=== PATIENT | male | born 1955 | race Caucasian/White ===

== ENCOUNTER 2017-12-02 11:32 | Observation (INO) | payer BC ==
[~2017-12-02 11:32] MED LIST: CEFAZOLIN 2 GM/50 ML (PMX) 50 ML IVPB; DESFLURANE 15 MIN; LIDOCAINE 2% (SDV) 5 ML INJ; SOD CHLORIDE 0.9% 1,000 ML IV
[2017-12-02] MEDS: BUPIVACAINE 0.25% (MPF) 30 ML INJ (13:46)
[2017-12-02] MEDS ORDERED: CEFAZOLIN 2 GM/50 ML (PMX) 50 ML IVPB ×2 (14:00→16:00)
[2017-12-02] MEDS ORDERED: SOD CHLORIDE 0.9% 1,000 ML IV (14:00)
[2017-12-02] MEDS ORDERED: PROPOFOL 20 ML (14:10)
[2017-12-02] MEDS ORDERED: ROCURONIUM 50 MG INJ (14:10)
[2017-12-02] MEDS ORDERED: GLYCOPYRROLATE 0.4 MG INJ (14:10)
[2017-12-02] MEDS ORDERED: CEFAZOLIN 1 GM INJ (14:10)
[2017-12-02] MEDS ORDERED: NEOSTIGMINE 3 MG/3 ML SYRINGE (14:10)
[2017-12-02] MEDS ORDERED: ONDANSETRON 4 MG INJ (14:12)
[2017-12-02] MEDS ORDERED: MIDAZOLAM 1 MG/ML 2 ML INJ (14:12)
[2017-12-02] MEDS ORDERED: FENTAnyl 50 MCG/ML VIAL (14:12)
[2017-12-02] MEDS ORDERED: DEXAMETHASONE 4 MG/ML 1 ML INJ (14:12)
[2017-12-02] MEDS ORDERED: LABETALOL HCL 20MG INJ (14:27)
[2017-12-02] MEDS ORDERED: TRIMETHOBENZAMIDE 100 MG/ML VIAL IM (14:30)
[2017-12-02] MEDS ORDERED: IPRATROPIUM (NEB) 0.5 MG/2.5 ML AMP HHN (14:30)
[2017-12-02] MEDS ORDERED: OXYCODONE/ACETAMINOPHEN (5/325) TAB PO ×2 (14:30)
[2017-12-02] MEDS ORDERED: MEPERIDINE 25 MG INJ IV (14:30)
[2017-12-02] MEDS ORDERED: LABETALOL HCL 20MG INJ IV (14:30)
[2017-12-02] MEDS ORDERED: DIPHENHYDRAMINE 50 MG INJ IV (14:30)
[2017-12-02] MEDS ORDERED: ALBUTEROL 0.083% (NEB) 2.5 MG/3 ML AMP HHN (14:30)
[2017-12-02] MEDS ORDERED: HYDROmorphONE 1 MG/5 ML IV SYRINGE IV ×3 (14:30)
[2017-12-02] MEDS ORDERED: ONDANSETRON 4 MG INJ IV (14:30)
[2017-12-02] MEDS ORDERED: MIDAZOLAM 1 MG/ML 2 ML INJ IV (14:30)
[2017-12-02] MEDS ORDERED: EPHEDrine SULFATE 50 MG/5 ML SYG IV (14:30)
[2017-12-02] MEDS ORDERED: FENTAnyl 50 MCG/ML VIAL IV ×3 (14:30)
[2017-12-02] MEDS ORDERED: hydrALAzine 20 MG INJ IV (14:30)
[2017-12-02] MEDS ORDERED: SUGAMMADEX SODIUM 200 MG/2 ML VIAL IV (15:48)
[2017-12-02] MEDS ORDERED: morphine 2 MG INJ IV (16:00)
[2017-12-02 16:35] LABS: ADD MAN DIFF? NO
[2017-12-02 16:36] LABS: BASOPHIL # 0.1 10^3/ul (0.0-0.1); BASOPHILS % 0.6 % (0.0-2.0); EOSINOPHILS # 0.2 10^3/ul (0.0-0.5); EOSINOPHILS % 1.4 % (0.0-7.0); HEMATOCRIT 40.4 % (42.0-52.0); HEMOGLOBIN 13.4 g/dl (14.0-18.0); LYMPHOCYTES # 2.1 10^3/ul (0.8-2.9); MEAN CORPUSCULAR HEMOGLOBIN 28.3 pg (29.0-33.0); MEAN CORPUSCULAR HGB CONC 33.2 g/dl (32.0-37.0); MEAN CORPUSCULAR VOLUME 85.4 fl (82.0-101.0); MEAN PLATELET VOLUME 10.9 fl (7.4-10.4); MONOCYTE # 0.3 10^3/ul (0.3-0.9); MONOCYTES % 2.2 % (0.0-11.0); NEUTROPHIL # 10.3 10^3/ul (1.6-7.5); NEUTROPHILS % 79.5 % (39.0-77.0); PLATELET COUNT 287 10^3/UL (140-415); RED BLOOD COUNT 4.73 10^6/ul (4.70-6.10); RED CELL DISTRIBUTION WIDTH 13.7 % (11.5-14.5)
[2017-12-02 16:40] LABS: HOLD TRANSMISSIONS 1
[2017-12-02 16:59] LABS: ALANINE AMINOTRANSFERASE 44 IU/L (13-69); ALBUMIN 3.7 g/dl (3.3-4.9); ALBUMIN/GLOBULIN RATIO 1.27; ALKALINE PHOSPHATASE 79 IU/L (42-121); ANION GAP 12 (8-16); ASPARTATE AMINO TRANSFERASE 25 IU/L (15-46); BILIRUBIN,INDIRECT 0.3 mg/dl (0-1.1); BILIRUBIN,TOTAL 0.3 mg/dl (0.2-1.3); BLOOD UREA NITROGEN 15 mg/dl (7-20); CALCIUM 8.9 mg/dl (8.4-10.2); CARBON DIOXIDE 19 mmol/L (21-31); CHLORIDE 115 mmol/L (97-110); CREATININE 1.15 mg/dl (0.61-1.24); GLUCOSE 198 mg/dl (70-220); POTASSIUM 4.6 mmol/L (3.5-5.1); SODIUM 141 mmol/L (135-144); TOTAL PROTEIN 6.6 g/dl (6.1-8.1)
[2017-12-02] MEDS ORDERED: GLUCAGON 1 MG INJ IM (18:30)
[2017-12-02] MEDS ORDERED: GLUCOSE GEL 15 GRAM TUBE BUCCAL (18:30)
[2017-12-02] MEDS ORDERED: DEXTROSE 50% 50 ML SYRINGE IV ×2 (18:30)
[2017-12-02] MEDS ORDERED: GLUCOSE GEL 15 GRAM TUBE PO ×2 (18:30)
[2017-12-02] MEDS: CEFAZOLIN 2 GM/50 ML (PMX) 50 ML IVPB (20:54)
[2017-12-02] MEDS: HYDROCODONE/APAP (5/325) TAB PO (20:54)
[2017-12-02] MEDS: AMLODIPINE 5 MG TAB PO (20:57)
[2017-12-02] MEDS: LISINOPRIL 10 MG TAB PO (20:57)
[2017-12-02] MEDS: LACTATED RINGER'S 1,000 ML IV (20:59)
[2017-12-02] MEDS: INSULIN ASPART [NOVOLOG] 3 ML PEN SC (21:00)
[2017-12-02 22:10] LABS: CALCIUM 9.6 mg/dl (8.4-10.2)
[2017-12-03] MEDS: LACTATED RINGER'S 1,000 ML IV ×2 (01:49→06:57)
[2017-12-03] MEDS: CEFAZOLIN 2 GM/50 ML (PMX) 50 ML IVPB ×2 (04:26→12:35)
[2017-12-03 06:54] LABS: ADD MAN DIFF? NO
[2017-12-03 07:03] LABS: WHITE BLOOD COUNT 16.8 10^3/ul (4.8-10.8)
[2017-12-03 07:03] LABS: BASOPHILS % 0.2 % (0.0-2.0); EOSINOPHILS % 0.1 % (0.0-7.0); HEMATOCRIT 40.2 % (42.0-52.0); HEMOGLOBIN 13.4 g/dl (14.0-18.0); LYMPHOCYTES # 1.4 10^3/ul (0.8-2.9); LYMPHOCYTES % 8.3 % (15.0-51.0); MEAN CORPUSCULAR HEMOGLOBIN 28.6 pg (29.0-33.0); MEAN CORPUSCULAR HGB CONC 33.3 g/dl (32.0-37.0); MEAN CORPUSCULAR VOLUME 85.9 fl (82.0-101.0); MEAN PLATELET VOLUME 11.8 fl (7.4-10.4); MONOCYTE # 0.9 10^3/ul (0.3-0.9); MONOCYTES % 5.2 % (0.0-11.0); NEUTROPHIL # 14.4 10^3/ul (1.6-7.5); NEUTROPHILS % 85.8 % (39.0-77.0); PLATELET COUNT 303 10^3/UL (140-415); RED BLOOD COUNT 4.68 10^6/ul (4.70-6.10); RED CELL DISTRIBUTION WIDTH 13.8 % (11.5-14.5)
[2017-12-03 07:30] LABS: ALANINE AMINOTRANSFERASE 42 IU/L (13-69); ALBUMIN 3.4 g/dl (3.3-4.9); ALBUMIN/GLOBULIN RATIO 1.13; ALKALINE PHOSPHATASE 60 IU/L (42-121); ANION GAP 15 (8-16); ASPARTATE AMINO TRANSFERASE 24 IU/L (15-46); BILIRUBIN,INDIRECT 0.5 mg/dl (0-1.1); BILIRUBIN,TOTAL 0.5 mg/dl (0.2-1.3); BLOOD UREA NITROGEN 18 mg/dl (7-20); CALCIUM 10.2 mg/dl (8.4-10.2); CARBON DIOXIDE 24 mmol/L (21-31); CHLORIDE 106 mmol/L (97-110); CREATININE 1.15 mg/dl (0.61-1.24); GLUCOSE 150 mg/dl (70-220); SODIUM 140 mmol/L (135-144); TOTAL PROTEIN 6.4 g/dl (6.1-8.1)
[2017-12-03 07:33] LABS: HEMOGLOBIN A1C 5.9 % (0-5.9)
[2017-12-03] MEDS: INSULIN ASPART [NOVOLOG] 3 ML PEN SC ×2 (08:00→12:00)
[2017-12-03] MEDS: GLIMEPIRIDE 2 MG TAB PO (08:06)
[2017-12-03] MEDS: LISINOPRIL 10 MG TAB PO (08:07)
[2017-12-03] MEDS: LINAGLIPTIN 5 MG TABLET PO (08:07)
[2017-12-03] MEDS: AMLODIPINE 5 MG TAB PO (08:07)
== END 2017-12-03 17:07 | disposition home or self-care (01) ==
LOC: SDS 11:32 → REC 16:53 → PP2 18:45
PROVIDERS: Surgery
DX: C73 Malignant neoplasm of thyroid gland (principal); E11.9 Type 2 diabetes mellitus without complications; I10 Essential (primary) hypertension; E78.5 Hyperlipidemia, unspecified; F17.200 Nicotine dependence, unspecified, uncomplicated
CPT/HCPCS: 14041; 80053; 82310; 82962; 83036; 85025; 88307; 99217

== ENCOUNTER → 2018-02-10 | Outpatient (CLI) | payer BC | END | disposition home or self-care (01) | LOC: NUC 08:17 | DX: C73 Malignant neoplasm of thyroid gland (principal) | CPT/HCPCS: 78018 ==